=== PATIENT | male | born 1960 | race Two or more races ===

== ENCOUNTER 2022-03-10 01:56 | Emergency (ER) | payer OTHER ==
[~2022-03-10] VITALS: Ht 157.5 cm; Wt 62.1 kg
[2022-03-10 02:04] VITALS: BP 144/97
[2022-03-10] MEDS ORDERED: AMOX/CLAVULANATE 875 MG TABLET PO ONE (03:00)
[2022-03-10] MEDS ORDERED: AMOX/CLAVULANATE 875 MG TABLET ONE (03:15)
[2022-03-10] MEDS ORDERED: AMOX-430 PO (04:50)
== END 2022-03-10 04:56 ==
LOC: ER 01:58
DX: H72.91 Unspecified perforation of tympanic membrane, right ear (principal); Z79.899 Other long term (current) drug therapy
CPT/HCPCS: 70450-TC